=== PATIENT | female | born 1995 | race Caucasian/White ===

== ENCOUNTER 2018-11-09 14:46 | Emergency (ER) | payer BC, MEDICAID ==
[2018-11-09 14:56] VITALS: O2SAT 100
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
[2018-11-09 17:29] VITALS: BP 117/74; PULSE 90; RESP 19; TEMP 97.9
--- NOTE | 2018-11-11 11:46 | CARD ---
APPROVED REPORT Date of service: 11/09/2018 EKG Measurement Heart [id number] <Conclusion> Normal sinus rhythm Normal ECG
== END 2018-11-09 17:34 | disposition home or self-care (01) ==
LOC: H.ER 14:46
DX: S20.219A Contusion of unspecified front wall of thorax, initial encounter (principal); Y04.0XXA Assault by unarmed brawl or fight, initial encounter; Y92.89 Other specified places as the place of occurrence of the external cause; F41.9 Anxiety disorder, unspecified
CPT/HCPCS: 71101; 81025; 93005; 96372; 99283; J1885